=== PATIENT | male | born 1985 | race Caucasian/White ===

== ENCOUNTER 2017-03-25 03:40 | Inpatient (IN) | payer OTHER ==
--- NOTE | 2017-03-18 22:30 | NUR ---
PATIENT RESTING IN BED SLEEPING ON AND OFF WATCHING TV.NEEDS MET WILL CONTINUE TO MONITOR.CALL LIGHT WITHIN REACH.
[~2017-03-25] VITALS: Ht 160 cm; Wt 85.7 kg
[2017-03-25 03:40] VITALS: BP 158/100
--- NOTE | 2017-03-25 03:49 | NUR ---
PT TAKEN TO BED 10
--- NOTE | 2017-03-25 03:50 | NUR ---
31/M PRESENTS IN ER WITH 10/10 SEVERE SHARP PAIN IN LOWER ABDOMINAL X7 DAYS, WORSENED TODAY PROMPTING ER VISIT. PT REPORTS HE WAS DISCHARGED FROM [place] ON 03/24/18 AT 1300, DX: SMALL BOWEL OBSTRUCTION RX: COLACE, NORCO. ABDOMEN DISTENDED AND ROUND, BS ACTIVE X 4, PT REPORTS HE FEELS BLOATED, HAVING LIQUID STOOLS, PASSING GAS AND BELCHING. LAST REGULAR MEAL WAS YESTERDAY. DENIES TAKING DOSE OF NORCO, TOOK TYLENOL AT 1900 YESTERDAY WITH MINIMAL RELIEF OF SYMPTOMS
--- NOTE | 2017-03-25 04:04 | NUR ---
Marilyn riley in [facility] - 03/25/[address] at [address] Marino evaluating patient at bedside.
[2017-03-25] MEDS ORDERED: ACET-8386 PO (04:07)
[2017-03-25] MEDS ORDERED: DOCU-299 PO (04:07)
--- NOTE | 2017-03-25 04:13 | NUR ---
Dr. Marino evaluating patient at bedside.
[2017-03-25] MEDS ORDERED: NACL 0.9% 1,000 ML IV SCH (04:19)
[2017-03-25] MEDS ORDERED: diphenhydrAMINE 50 MG/ML VIAL IVP ONE (04:20)
[2017-03-25] MEDS ORDERED: KETOROLAC 30 MG/ML VIAL IVP ONE (04:20)
[2017-03-25] MEDS ORDERED: HALOPERIDOL IM 5 MG/ML VIAL IM ONE (04:20)
[2017-03-25 04:36] LABS: HEMATOCRIT 43.8 % (36-52); HEMOGLOBIN 14.2 g/dL (12.0-18.0); MEAN CORPUSCULAR HEMOGLOBIN 30 pg (27-31); MEAN CORPUSCULAR HGB CONC 32 g/dL (33-37); MEAN CORPUSCULAR VOLUME 93 fL (80-94); PLATELET COUNT (AUTO) 404 K/uL (140-450); RED BLOOD CELL COUNT(AUTO) 4.71 MIL/uL (4.20-6.10); RED CELL DISTRIBUTION WIDTH 11.6 % (11.6-13.7); WHITE BLOOD COUNT (AUTO) 9.2 K/uL (4.8-10.8)
[2017-03-25 04:47] LABS: ANION GAP 11.9 (8-16); CARBON DIOXIDE 26.8 mmol/L (21-32); CHLORIDE 104 mmol/L (98-107); CREATININE 0.9 mg/dL (0.7-1.3); GFR ARICAN-AMERICAN 127 mL/min (>90); GLUCOSE 113 mg/dL (74-106); POTASSIUM 3.7 mmol/L (3.5-5.1); SODIUM SERUM 139 mmol/L (136-145); UREA NITROGEN, BLOOD 10 mg/dL (7-18)
[2017-03-25 04:48] LABS: ACETONE, SERUM NEGATIVE (NEGATIVE)
[2017-03-25 04:54] LABS: ALBUMIN 3.4 g/dL (3.4-5.0); AMYLASE 15 U/L (25-115); ASPARTATE AMINOTRANSFERASE 163 U/L (15-37); LIPASE 85 U/L (73-393); TOTAL BILIRUBIN 0.7 mg/dL (0.0-1.0)
[2017-03-25 05:01] LABS: EOSINOPHILS % (MANUAL) 1 % (0-4); LYMPHOCYTES % (MANUAL) 15 % (20-46); MONOCYTES % (MANUAL) 18 % (5-12)
--- NOTE | 2017-03-25 05:15 | NUR ---
PT UNABLE TO VOID AT THIS TIME, ER MD MARAVILLA MADE AWARE. NO NEW ORDERS RECEIVED
--- NOTE | 2017-03-25 05:50 | NUR ---
PT REFUSES TO HAVE NG TUBE PUT IN, ER MD MARAVILLA MADE AWARE, NO FURTHER ORDERS RECEIVED AT THIS TIME
[2017-03-25] MEDS ORDERED: ACETAMINOPHEN 325 MG TAB PO PRN (06:05)
[2017-03-25] MEDS ORDERED: IBUPROFEN 600 MG TAB PO PRN (06:05)
[2017-03-25] MEDS ORDERED: ONDANSETRON 4 MG/2 ML VIAL IVP PRN (06:05)
[2017-03-25] MEDS ORDERED: LORazepam 0.5 MG TAB PO PRN (06:05)
[2017-03-25] MEDS ORDERED: PIPERACILLIN/TAZOBACTAM 3.375 GM in DEXTROSE 5% 50 ML IV ONE (06:10)
--- NOTE | 2017-03-25 06:21 | NUR ---
Patient will be admitted to care of SOLORZANO. Admited to MS. Will go to room 119B. Belongings list completed. BEDSIDE Report to MARIETTA JACKSON. PT STABLE DURING TRANSFER, IV INFUSING WITH NS, MARIETTA INFORMED TO FINISH BOLUS.
--- NOTE | 2017-03-25 06:33 | NUR ---
PT ARRIVED AT UNIT VIA GURYUN, PT STABLE, NO DISTRESS NOTED, CALL LIGHT WITHIN REACH.
[2017-03-25] MEDS ORDERED: PIPERACILLIN/TAZOBACTAM 3.375 GM VIAL IV ONE (06:48)
--- NOTE | 2017-03-25 06:53 | NUR ---
ZOSYN STARTED @100ML/HR, PT STABLE, NO DISTRESS NOTED, CALL LIGHT WITHIN REACH.
[2017-03-25] MEDS ORDERED: NACL 0.9% 1,000 ML IV ONE (07:00)
[2017-03-25] MEDS: NACL 0.9% 1,000 ML IV SCH ×2 (07:02→16:48)
[2017-03-25 07:14] LABS: MAGNESIUM 1.9 mg/dL (1.8-2.4); PHOSPHORUS 4.6 mg/dL (2.5-4.9)
--- NOTE | 2017-03-25 07:17 | NUR ---
GAVE BEDSIDE REPORT TO DAY SHIFT NURSE HANNAH RN, ENDORSED PLAN OF CARE, PT STABLE NO DISTRESS NOTED, CALL LIGHT WITHIN REACH.
--- NOTE | 2017-03-25 07:20 | NUR ---
RECEIVED REPORT FROM DEAN OF ADMISSIONS NURSE, PT IS RESTING IN BED, A/OX4, AMBULATORY, IV IS ON THE LEFT AC, PATENT, INTACT, FLUSHING WELL, NO S/S OF RESPIRATORY DISTRESS OR DISCOMFORT NOTED, DISCUSSED PLAN OF CARE WITH PT, PT VERBALIZED UNDERSTANDING, SAFETY/FALL PRECAUTIONS ARE IN PLACE, CALL LIGHT IS WITHIN REACH, WILL CONTINUE TO MONITOR.
--- NOTE | 2017-03-25 07:25 | NUR ---
ZOSYN IV COMPLETED AT THIS TIME.
[2017-03-25 08:00] VITALS: BP 123/71
[2017-03-25] MEDS: PANTOPRAZOLE 40 MG TABEC PO SCH (08:29)
[2017-03-25] MEDS: ENOXAPARIN 30 MG/0.3 ML SYR SUBQ SCH (08:33)
--- NOTE | 2017-03-25 08:35 | NUR ---
PATIENT STATED HE HAD A LOOSE-WATERY BOWEL MOVEMENT.
--- NOTE | 2017-03-25 10:35 | NUR ---
PT SLEEPING IN BED, CALL LIGHT IS WITHIN REACH.
--- NOTE | 2017-03-25 13:08 | NUR ---
IV FLUIDS UNDER OBSERVATION DISCONTINUED AT THIS TIME.
--- NOTE | 2017-03-25 15:22 | NUR ---
PT SLEEPING IN BED AT THIS TIME, CALL LIGHT IS WITHIN REACH.
--- NOTE | 2017-03-25 15:30 | NUR ---
FAXED INITIAL REVIEW TO [facility] [phone] PHONE IAM [phone]
--- NOTE | 2017-03-25 15:40 | NUR ---
RECEIVED PHONE CALL FROM DR. RAMÍREZ, PER DOCTOR ADVANCE THE PATIENT DIET FROM CLEAR LIQUID TO REGULAR TOLERATED.
[2017-03-25 16:00] VITALS: BP 118/64
--- NOTE | 2017-03-25 17:00 | NUR ---
PT SLEEPING IN BED AT THIS TIME, CALL LIGHT IS WITHIN REACH.
--- NOTE | 2017-03-25 19:20 | NUR ---
ENDORSED PT ADVERTISING EXECUTIVE NURSE FOR CONTINUITY OF CARE, PT STABLE AT THIS TIME.
[2017-03-25 20:00] VITALS: BP 119/70
--- NOTE | 2017-03-25 22:30 | NUR ---
PATIENT RESTING IN BED SLEEPING ON AND OFF WATCHING TV.NEEDS MET WILL CONTINUE TO MONITOR.CALL LIGHT WITHIN REACH.
--- NOTE | 2017-03-26 00:40 | NUR ---
PATIENT SLEEPING IN BED AT THIS TIME IVF INFUSING WELL IV SITE PATENT.PATIENT DENIES PAIN. PATIENT WANTS ME TO CHECK HIS VITALS SIGNS LATER NOT AT THIS TIME.NEEDS MET CALL LIGHT WITHIN REACH.
[2017-03-26] MEDS: NACL 0.9% 1,000 ML IV SCH (02:02)
--- NOTE | 2017-03-26 02:03 | NUR ---
PATIENT IS CURRENTLY RESTING IN BED NEEDS MET WILL CONTINUE TO MONITOR.
[2017-03-26] MEDS: PANTOPRAZOLE 40 MG TABEC PO SCH (06:31)
--- NOTE | 2017-03-26 07:02 | NUR ---
PATIENT STABLE IN NO DISTRESS WILL CONTINUE TO MONITOR.PATIENT CONTINUES TO DENY ANY ABDOMINAL PAIN AND FEELING NAUSEATED PATIENT STATES,"I WANT TO GO HOME TODAY."IVF INFUSING WELL IV SITE PATENT WILL CONTINUE TO MONITOR.CALL LIGHT WITHIN REACH.
[2017-03-26 07:08] LABS: HEMATOCRIT 40.5 % (36-52); HEMOGLOBIN 13.5 g/dL (12.0-18.0); MEAN CORPUSCULAR HEMOGLOBIN 31 pg (27-31); MEAN CORPUSCULAR HGB CONC 33 g/dL (33-37); MEAN CORPUSCULAR VOLUME 93 fL (80-94); PLATELET COUNT (AUTO) 347 K/uL (140-450); RED BLOOD CELL COUNT(AUTO) 4.34 MIL/uL (4.20-6.10); WHITE BLOOD COUNT (AUTO) 7.3 K/uL (4.8-10.8)
--- NOTE | 2017-03-26 07:20 | NUR ---
RECEIVED REPORT FROM VP DIRECTOR OF CREATIVE STRATEGY NURSE AT BEDSIDE, PT IS RESTING IN BED, A/OX4, IV NOTED ON THE LEFT AC, PATENT, INTACT, FLUSHING WELL. NO S/S OF RESPIRATORY DISTRESS NOTED, DISCUSSED PLAN OF CARE WITH PT, PT VERBALIZED UNDERSTANDING, BED IN LOWEST POSITION, CALL LIGHT IS WITHIN REACH, WILL CONTINUE TO MONITOR.
[2017-03-26 07:23] LABS: ALBUMIN 2.8 g/dL (3.4-5.0); ANION GAP 11.7 (8-16); CARBON DIOXIDE 27.7 mmol/L (21-32); CREATININE 1.1 mg/dL (0.7-1.3); POTASSIUM 3.4 mmol/L (3.5-5.1)
--- NOTE | 2017-03-26 07:30 | NUR ---
PATIENT STABLE RESTING IN BED AT THIS TIME SLEEPING.REPORT ENDORSED TO MANUEL VENTURA AT BEDSIDE HE WILL RESUME CARE OF THE PATIENT.
[2017-03-26 08:00] VITALS: BP 121/80
[2017-03-26 08:07] LABS: LYMPHOCYTES % (MANUAL) 21 % (20-46)
[2017-03-26 08:08] LABS: EOSINOPHILS % (MANUAL) 1 % (0-4); MONOCYTES % (MANUAL) 15 % (5-12)
--- NOTE | 2017-03-26 09:00 | NUR ---
PAGED DR RAMÍREZ FOR K 3.4, DR HUMAIRA GILLETTE
[2017-03-26] MEDS ORDERED: POTASSIUM CHLORIDE 10 MEQ TABER PO SCH (09:04)
[2017-03-26] MEDS: ENOXAPARIN 30 MG/0.3 ML SYR SUBQ SCH (09:44)
--- NOTE | 2017-03-26 10:00 | NUR ---
PT STATED HE WENT TO THE RESTROOM AND HAD A BM.
--- NOTE | 2017-03-26 10:50 | NUR ---
PT DENIED ABD PAIN, NAUSEA AND VOMITING FOR THIS MORNING. WILL CONTINUE TO MONITOR.
--- NOTE | 2017-03-26 11:10 | NUR ---
PT DISCHARGED PER MD ORDER. MEDICATION TEACHING AND DISCHARGE INSTRUCTIONS GIVEN. PT VERBALIZED UNDERSTANDING. IV DC'ED, TIP INTACT, PRESSURE APPLIED. PT DENIES ABD PAIN, NAUSEA AND VOMITING AT THIS TIME. NO S/S OF ACUTE DISTRESS NOTED. PT TOOK ALL HIS BELONGINGS AND LEFT IN STABLE CONDITION. PT WAS WHEELED OUT BY SPEECH WRITER.
== END 2017-03-26 11:10 | disposition home or self-care (01) | DRG 247 ==
LOC: MED 03:40 → MTU 06:10 → OBSVTOIN 13:08
PROVIDERS: ADMIT Internal Medicine; ATTEND Internal Medicine
DX: K56.609 Unspecified intestinal obstruction, unspecified as to partial versus complete obstruction (principal); F12.90 Cannabis use, unspecified, uncomplicated; Z88.8 Allergy status to other drugs, medicaments and biological substances; R74.0 Nonspecific elevation of levels of transaminase and lactic acid dehydrogenase [LDH]
CPT/HCPCS: 96361; 96372; 96374; 96375; 99285; G0378; 36415; 80053; 82009; 82150; 83690; 83735; 84100; 85025; 87081; J1200; J1630; J1650; J1885; J2543; J7030

== ENCOUNTER 2017-12-19 18:43 | Emergency (ER) | payer OTHER ==
[~2017-12-19 18:43] MED LIST: ACET-8386 PO; DOCU-299 PO
--- NOTE | 2017-12-19 18:48 | NUR ---
PT WALKED OUT OF THE ER LOBBY--STATED DID NOT WANT TO BE SEEN
== END 2017-12-19 18:48 | disposition left against medical advice (07) ==
LOC: MED 18:43
DX: Z53.21 Procedure and treatment not carried out due to patient leaving prior to being seen by health care provider (principal)

== ENCOUNTER 2018-10-25 21:08 | Emergency (ER) | payer OTHER ==
[~2018-10-25] VITALS: Ht 170.2 cm; Wt 77.1 kg
[2018-10-25 21:32] VITALS: BP 138/95
--- NOTE | 2018-10-25 21:35 | NUR ---
32 YO M BIB SELF PRESENTS TO ED C/O 9/10 GENERALIZED, DIFFUSE CHEST PAIN X 3 DAYS. PT STATES HE WAS ADMITTED TO [facility] 3 DAYS AGO FOR CHEST PAIN AND LEFT AMA TODAY BECAUSE "THEY WERE TAKING TOO LONG". PT ALSO C/O DIZZINESS. DENIES SOB, NVD. -- PT AWAKE, ALERT, CALM, COOPERATIVE. BEHAVIOR AGE APPROPRIATE. PT IS POOR HISTORIAN. -- SKIN PINK, WARM, DRY. BREATHING EVEN, UNLABORED. PMH-- DENIES RX-- WAS GIVEN RX FOR AMLODIPINE FROM [facility]
[2018-10-25] MEDS ORDERED: KETOROLAC 60 MG/2 ML VIAL IM ONE (21:40)
--- NOTE | 2018-10-25 21:45 | NUR ---
LAB AT BEDSIDE.
--- NOTE | 2018-10-25 21:50 | NUR ---
EMT PERFORMING EKG AT BEDSIDE.
[2018-10-25 21:54] LABS: BASOPHILS % (AUTO) 0.2 % (0.0-2.0); EOSINOPHILS # (AUTO) 0.1 K/uL (0-0.4); EOSINOPHILS % (AUTO) 0.8 % (0.0-4.0); HEMATOCRIT 46.7 % (36-52); HEMOGLOBIN 15.8 g/dL (12.0-18.0); LYMPHOCYTES % (AUTO) 8.1 % (20.5-51.1); MEAN CORPUSCULAR HEMOGLOBIN 33 pg (27-31); MEAN CORPUSCULAR HGB CONC 34 g/dL (33-37); MONOCYTES # (AUTO) 1.3 K/uL (0.8-1.0); MONOCYTES % (AUTO) 11.3 % (1.7-9.3); NEUTROPHILS # (AUTO) 9.3 K/uL (1.8-7.7); NEUTROPHILS % (AUTO) 79.6 % (42.2-75.2); PLATELET COUNT (AUTO) 256 K/uL (140-450); RED BLOOD CELL COUNT(AUTO) 4.86 MIL/uL (4.20-6.10); RED CELL DISTRIBUTION WIDTH 13.1 % (11.6-13.7); WHITE BLOOD COUNT (AUTO) 11.7 K/uL (4.8-10.8)
[2018-10-25 22:28] LABS: CARBON DIOXIDE 25.5 mmol/L (21-32); CREATININE 1.1 mg/dL (0.7-1.3); POTASSIUM 3.5 mmol/L (3.5-5.1)
[2018-10-25 22:36] LABS: ALBUMIN 2.9 g/dL (3.4-5.0); TOTAL BILIRUBIN 2.4 mg/dL (0.0-1.0)
--- NOTE | 2018-10-26 00:09 | NUR ---
DR OLVERA AT BEDSIDE.
--- NOTE | 2018-10-26 00:25 | NUR ---
Patient discharged with v/s stable. Written and verbal after care instructions given and explained. Patient alert, oriented and verbalized understanding of instructions. Ambulatory with steady gait. All questions addressed prior to discharge. ID band removed. Patient advised to follow up with PMD. Rx of motrin, prilosec given. Patient educated on indication of medication including possible reaction and side effects. Opportunity to ask questions provided and answered.
[2018-10-26 00:28] VITALS: BP 140/88
== END 2018-10-26 00:29 | disposition home or self-care (01) ==
LOC: MED 21:08
DX: R07.89 Other chest pain (principal); R10.13 Epigastric pain; I10 Essential (primary) hypertension; Z79.891 Long term (current) use of opiate analgesic; Z79.899 Other long term (current) drug therapy
CPT/HCPCS: 36415; 71045; 80053; 83690; 84484; 85025; 93005; 96372; 99284; J1885; Q0092

== ENCOUNTER 2018-10-28 23:00 | Inpatient (IN) | payer OTHER ==
[~2018-10-28] VITALS: Ht 170.2 cm; Wt 92.5 kg
[2018-10-28 23:03] VITALS: BP 150/82
--- NOTE | 2018-10-28 23:06 | NUR ---
TO LOBBY A/W BED, AMBULATORY
--- NOTE | 2018-10-29 00:26 | NUR ---
32 Y/O MALE PRESENTS TO ED WITH C/O CP, SOB/DYSPNEA X6 DAYS. STERNAL CP RADIATING TO BACK. O2SAT 91% AT RA. BILAT BASES DIMINISHED. RR 32. SKIN DIAPHORETIC. PT STATES 9/10 PAIN AND EXACERBATED WITH DEEP BREATHING AND POSITION CHANGE. DENIES DRUG USE. HE WAS SEEN AT [facility] 6 DAYS AGO. HAD AN ECHO DONE AND PT WAS INFORMED IT WAS NEGATIVE. HE RETURNED TO [facility] 2-3 DAYS AGO AND TREATED FOR GASTRITIS. PT CONTINUES TO HAVE SIMILAR CP AND SOB COMPLAINT AND UNRELIEVED X6 DAYS. PT PLACED ON 02 NC @ 2lpm. O2 INCREASED TO 99%. RR NOT IMPOROVED BUT FINDING RELIEF. HR 102 AFTER INTERVENTION. ER MD MADE AWARE. CONTNIUE TO MONITOR.
--- NOTE | 2018-10-29 00:26 | NUR ---
PT TAKEN TO BED 3
[2018-10-29] MEDS ORDERED: NACL 0.9% 1,000 ML IV ONE (00:40)
--- NOTE | 2018-10-29 01:00 | NUR ---
PT IN BED RESTING WITH EYES CLOSED. EASILY ROUSABLE. NO C/O PAIN AT THIS TIME. PT ON 2LPM VIA NC @99%. HOB ELEVATED. ER AWARE. CONTINUE TO MONITOR.
[2018-10-29 01:13] LABS: HEMATOCRIT 41.5 % (36-52); MEAN CORPUSCULAR HEMOGLOBIN 32 pg (27-31); MEAN CORPUSCULAR HGB CONC 34 g/dL (33-37); MEAN CORPUSCULAR VOLUME 94.3 fL (80-94); PLATELET COUNT (AUTO) 302 K/uL (140-450); RED CELL DISTRIBUTION WIDTH 13.3 % (11.6-13.7); WHITE BLOOD COUNT (AUTO) 13.7 K/uL (4.8-10.8)
[2018-10-29 01:45] LABS: ALBUMIN 2.6 g/dL (3.4-5.0); ANION GAP 15.3 (8-16); CARBON DIOXIDE 26.5 mmol/L (21-32); CREATININE 0.9 mg/dL (0.7-1.3); TOTAL BILIRUBIN 1.5 mg/dL (0.0-1.0)
[2018-10-29 01:47] LABS: POTASSIUM 2.8 mmol/L (3.5-5.1)
[2018-10-29 01:50] LABS: EOSINOPHILS % (MANUAL) 2 % (0-4); LYMPHOCYTES % (MANUAL) 10 % (20-46); MONOCYTES % (MANUAL) 11 % (5-12)
[2018-10-29] MEDS ORDERED: PIPERACILLIN/TAZOBACTAM 3.375 GM in DEXTROSE 5% 50 ML IV ONE (02:10)
[2018-10-29] MEDS ORDERED: PIPERACILLIN/TAZOBACTAM 3.375 GM VIAL IV ONE (02:26)
[2018-10-29] MEDS ORDERED: POTASSIUM CHL 20 MEQ/ 1/2 NS 1,000 ML IV ONE ×2 (02:30)
--- NOTE | 2018-10-29 02:35 | NUR ---
PT IN BED RESTING WITH EYES CLOSED. EASILY ROUSABLE. NO C/O PAIN AT THIS TIME. PT ON 2LPM VIA NC @99%. AFEBRILE. HR 99. HOB ELEVATED. ER MD AWARE. CONTINUE TO MONITOR.
[2018-10-29] MEDS ORDERED: VANCOMYCIN 1,000 MG in DEXTROSE 5% 250 ML IV ONE ×2 (03:00→03:10)
[2018-10-29] MEDS ORDERED: VANCOMYCIN 1,000 MG VIAL ONE (03:23)
--- NOTE | 2018-10-29 03:38 | NUR ---
PT UNABLE TO PROVIDE URINE AT THIS TIME. DR HERNÁNDEZ NOTIFIED.
--- NOTE | 2018-10-29 03:59 | NUR ---
PT ARRIVED AT UNIT VIA GURNEY, PT AMBULATED TO BED, TOLERATED WELL, NO DISTRESS NOTED, REPORT RECEIVED FROM ER NURSE CASSIE RN, PT STABLE, IV TO L AC 20G PATENT INTACT, TO R AC 20G PATENT INTACT, PT ON 2LPM O2 VIA NC, NO SOB NOTED, PT IS DROWSY, ABLE TO ANSWER A FEW QUESTIONS THEN WENT TO SLEEP AND WOUND NOT ANSWER QUESTIONS, PT STABLE, NO DISTRESS NOTED, INITIAL ASSESSMENT DONE, ALL SAFETY PRECAUTION MET, MRSA SWAB TAKEN. WILL CONTINUE TO MONITOR.
[2018-10-29 04:00] VITALS: BP 147/94
--- NOTE | 2018-10-29 04:10 | NUR ---
REPORT GIVEN AND CARE TRANSFERED TO TRACIE RN ROOM 107A. TRANSFERED VIA GURNEY WITH VSS. AFEBRILE. HR 89. 5/10 PAIN BUT TOLLERABLE. PT STATES FEELING BETTER THAN WHEN HE CAME.
[2018-10-29 07:13] LABS: BASOPHILS % (AUTO) 0.1 % (0.0-2.0); EOSINOPHILS # (AUTO) 0.1 K/uL (0-0.4); HEMATOCRIT 38.1 % (36-52); HEMOGLOBIN 12.7 g/dL (12.0-18.0); LYMPHOCYTES # (AUTO) 1.2 K/uL (2.0-11.5); LYMPHOCYTES % (AUTO) 8.4 % (20.5-51.1); MEAN CORPUSCULAR HEMOGLOBIN 32 pg (27-31); MEAN CORPUSCULAR HGB CONC 33 g/dL (33-37); MEAN CORPUSCULAR VOLUME 94.6 fL (80-94); MONOCYTES # (AUTO) 1.5 K/uL (0.8-1.0); MONOCYTES % (AUTO) 10.7 % (1.7-9.3); NEUTROPHILS # (AUTO) 11.5 K/uL (1.8-7.7); NEUTROPHILS % (AUTO) 79.8 % (42.2-75.2); PLATELET COUNT (AUTO) 269 K/uL (140-450); RED BLOOD CELL COUNT(AUTO) 4.03 MIL/uL (4.20-6.10); RED CELL DISTRIBUTION WIDTH 13.1 % (11.6-13.7); WHITE BLOOD COUNT (AUTO) 14.4 K/uL (4.8-10.8)
--- NOTE | 2018-10-29 07:23 | NUR ---
ENDORSED PT TO DAY SHIFT NURSE, PT STABLE, NO DISTRESS NOTED, US TECH AT BEDSIDE, PT HAVING US AT THIS MOMENT.
--- NOTE | 2018-10-29 07:24 | NUR ---
RECEIVED BEDSIDE REPORT FROM NIGHT NURSE. PT IS RESTING IN BED SLEEPING AROUSABLE TO NAME AOX4, BUT QUICKLY FALLING BACK TO SLEEP APPEARING TIRED AND WANTING TO SLEEP. PT HAS A LEFT AND RIGHT AC IV THAT ARE ASYMPTOMATIC AND PATENT INFUSING KCL AT 100ML/HR. WAS INFORMED BY NIGHT NURSE TO CONTINUE INFUSING CURRENT BAG OF KCL AT THIS RATE AND WHEN FINISHED TO INFUSE THE SECOND BAG THAT IS HANGING ON IV POLE WELL. ALL SAFETY MEASURES IN PLACE AND CALL LIGHT WITHIN REACH. BREATHING UNLABORED AND WITHOUT DISTRESS. SPOKE TO RT WHO STATES THEY WILL HELP COLLECT SPUTUM SAMPLE PT HAS NO COUGH CURRENTLY, PT DISCUSSED WITH NEED TO COLLECT URINE SAMPLE AND TO NOTIFY US WHEN HE NEEDS TO GO URINATE.
[2018-10-29 08:00] VITALS: BP 159/104
[2018-10-29 08:13] LABS: ANION GAP 14.5 (8-16); CARBON DIOXIDE 24.5 mmol/L (21-32); CREATININE 0.8 mg/dL (0.7-1.3)
[2018-10-29 08:19] LABS: MAGNESIUM 1.9 mg/dL (1.8-2.4); PHOSPHORUS 3.2 mg/dL (2.5-4.9)
--- NOTE | 2018-10-29 08:49 | NUR ---
PT SLEEPING IN BED BREATHING UNLABORED, NO DISTRESS. CURRENTLY ON 2L NC.
--- NOTE | 2018-10-29 09:30 | NUR ---
ASSISTED PT TO URINAL AND TOOK URINE SAMPLE TO LAB. PT HAS NO DISTRESS, TELE MONITOR TOLD ME HIS HEART RATE WAS AT 140 INFORMED HIM PT HAD JUST BEEN STRAINING HIMSELF TO STAND UP FOR THE FIRST TIME TODAY AND JUST WOKE UP TO URINATE.
--- NOTE | 2018-10-29 09:44 | NUR ---
PATIENT HAS BEEN SCREENED AND CATEGORIZED MODERATE NUTRITION RISK. PATIENT WILL BE SEEN WITHIN 3-5 DAYS OF ADMISSION. 10/31/18-11/02/[address]
[2018-10-29 10:10] LABS: BARBITURATE, URINE NEG. ng/ml (NEG <=200); BENZODIAZEPINE, URINE NEG. ng/mL (NEG <=200); CANNABINOID, URINE NEG. ng/mL (NEG <=50); COCAINE, URINE NEG. ng/mL (NEG <=300); OPIATE, URINE NEG. ng/mL (NEG <=2000); PHENCYCLIDINE SCREEN,URINE NEG. ng/mL (NEG <=25)
[2018-10-29 10:16] LABS: APPEARANCE,URINE CLEAR (CLEAR); BILIRUBIN,URINE 1+ (NEGATIVE); BLOOD, URINE NEGATIVE (NEGATIVE); COLOR,URINE DARK YELLOW (YELLOW); LEUKOCYTE ESTERASE ,URINE NEGATIVE (NEGATIVE); NITRITE, URINE NEGATIVE (NEGATIVE); UGLUCOSE NEGATIVE (NEGATIVE)
[2018-10-29 10:32] LABS: RBC,URINE 0-5 /HPF (0-5); WBC,URINE 0-5 /HPF (0-5)
--- NOTE | 2018-10-29 10:55 | NUR ---
PT SLEEPING BREATHING UNLABORED
--- NOTE | 2018-10-29 11:45 | NUR ---
administered medicATIONS PT SLEEPING IN BED NO DISTRESS
[2018-10-29 12:00] VITALS: BP 151/103
[2018-10-29] MEDS ORDERED: PIPERACILLIN/TAZOBACTAM 3.375 GM in DEXTROSE 5% 50 ML IV SCH (12:00)
[2018-10-29] MEDS ORDERED: POTASSIUM CHLORIDE 10 MEQ TABER PO SCH (12:00)
--- NOTE | 2018-10-29 12:01 | NUR ---
PT COMPLAINING OF 10/[address] GOMES WHO INFORMED ME TO ORDER A TROPONIN LAB DRAW RIGHT NOW AND IF IT IS WNL THEN TO GIVE PATIENT MAALOX ONE TIME DOSE AND CONTINUE WITH DISCHARGE PLANS.
--- NOTE | 2018-10-29 12:29 | NUR ---
[facility] CONTACTED ME INFORMING ME THE VQ SCAN IS STILL ORDERED. INFORMED THEM I WOULD CALL DR GOMES AND ASK IF HE WANTS TO ORDER A CANCEL FOR THE SCAN. CONTACTED DR GOMES OFFICE AND WAS INFORMED HE WOULD CALL ME BACK.
--- NOTE | 2018-10-29 12:38 | NUR ---
DR GOMES INFORMED ME TO GO AHEAD WITH SCAN IF IT CAN TAKE PLACE TODAY. INFORMED [facility] OF THIS.
--- NOTE | 2018-10-29 13:14 | NUR ---
PT CURRENTLY OUT OF ROOM AT NUCLEAR MEDICINE.
--- NOTE | 2018-10-29 13:29 | NUR ---
PT RETURNED FROM NUCLEAR MEDICINE CURRENTLY SITTING UP IN BED EATING LUNCH NO DISTRESS OR REQUESTS.
[2018-10-29] MEDS ORDERED: LEVO750T2 PO ×4 (13:46→15:03)
--- NOTE | 2018-10-29 14:00 | NUR ---
PT RESTING IN BED NO DISTRESS, TELE MONITOR FELL OFF ON ONE LEAD STICKER, REAPPLIED PT HAS NO REQUESTS DENIES PAIN.
--- NOTE | 2018-10-29 14:44 | NUR ---
ADMINISTERED MEDICATION PER ORDER. PT RESTING NO LABOR
--- NOTE | 2018-10-29 14:57 | NUR ---
NOTIFIED DR GOMES OF RECEIVED RESULTS OF VQ SCAN AND TROPONIN COMING BACK WNL NONE ELEVATED, ALSO CLARIFIED WITH IF HE WANTED TO CONTINUE WITH WRITTEN DISCHARGE PRESCRIPTION OF 1X DAILY LEVAQUIN FOR 6 DAYS BUT DISPENSE 12 PILLS IN QUANTITY. HE INFORMED ME THIS WAS FINE AND TO CONTINUE WITH DISCHARGE.
[2018-10-29] MEDS ORDERED: ALUMINUM HYD/MAG/SIMETHICONE 30 ML UDC PO SCH (15:00)
--- NOTE | 2018-10-29 15:40 | NUR ---
PATIENT DISCHARGE PAPERWORK REVIEWED AND SIGNED BY PATIENT WITH NO QUESTIONS. BOTH IVS REMOVED WITH BOTH CATHETERS INTACT AND GAUZE AND BANDAID APPLIED. WRIST BANDS REMOVED AND DISPOSED OF IN SHREDDER. PT HAS PRESCRIPTION WITH HIM AND PAPERWORK AND BELONGINGS. INFORMED PT TO LET ME KNOW WHEN HE LEAVES SO I CAN ESCORT HIM OUT, BUT WHEN I LEFT ROOM AND CAME BACK PT WAS GONE AT THIS TIME AND NOT FOUND TO BE ON UNIT. PT STATED EARLIER HE HAD FAMILY COMING TO PICK HIM UP AND TAKE HIM HOME.
== END 2018-10-29 15:40 | disposition home or self-care (01) | DRG 720 ==
LOC: MED 23:00 → MTU 10-29 03:27
PROVIDERS: ADMIT Internal Medicine Pulmonary Disease; ATTEND Internal Medicine Pulmonary Disease
DX: A41.9 Sepsis, unspecified organism (principal); J18.9 Pneumonia, unspecified organism; I10 Essential (primary) hypertension; Z91.041 Radiographic dye allergy status
CPT/HCPCS: 36415; 71045; 78582; 80048; 80053; 80305; 81001; 83605; 83690; 83735; 83880; 84100; 84484; 85025; 87040; 87081; 93005; 93970; 96365; 96367; 96368; 99284; 99285; J2543; J3370; J3480; J7060; Q0092

== ENCOUNTER 2018-10-30 01:53 | Emergency (ER) | payer OTHER ==
[~2018-10-30] VITALS: Ht 170.2 cm; Wt 95.3 kg
[~2018-10-30 01:53] MED LIST changes: +LEVO750T2 PO
[2018-10-30 02:00] VITALS: BP 143/92
--- NOTE | 2018-10-30 02:00 | NUR ---
TO BED # 07 AMBULATORY
--- NOTE | 2018-10-30 02:17 | NUR ---
32/M PRESENTS TO ED WITH MOTHER, C/O SOB, AND BL CHEST AND UPPER-MID BACK PAIN, EXACERBATED BY LYING FLAT. PT WAS ADMITTED YESTERDAY, DX BL PNA, WAS UNABLE TO FILL RX LEVAQUIN, REPORTS PERSISTENCE OF SYMPTOMS AFTER DISCHARGE. PT AWAKE AND ALERT, SKIN NORMAL WARM AND DRY, SPO2 95% ON RA, RR 20 EVEN AND UNLABORED. DENIES HX; UNABLE TO FILL RX LEVAQUIN; OTC IBUPROFEN 1 HR AGO WITHOUT RELIEF.
--- NOTE | 2018-10-30 02:47 | NUR ---
Dr. Hannah examining patient.
[2018-10-30] MEDS ORDERED: LEVOFLOXACIN 750 MG TAB PO ONE (03:05)
[2018-10-30 03:40] VITALS: BP 139/94
--- NOTE | 2018-10-30 03:40 | NUR ---
Patient discharged with v/s stable. Written and verbal after care instructions given and explained. Patient alert, oriented and verbalized understanding of instructions. Ambulatory with steady gait. All questions addressed prior to discharge. ID band removed. Patient advised to follow up with PMD. Rx of LEVAQUIN given. Patient educated on indication of medication including possible reaction and side effects. Opportunity to ask questions provided and answered.
== END 2018-10-30 03:40 | disposition home or self-care (01) ==
LOC: MED 01:53
DX: J18.9 Pneumonia, unspecified organism (principal); M54.9 Dorsalgia, unspecified; Z79.899 Other long term (current) drug therapy; Z88.8 Allergy status to other drugs, medicaments and biological substances
CPT/HCPCS: 99283